=== PATIENT | female | born 1965 | race Caucasian/White ===

== ENCOUNTER 2018-04-11 07:58 | Emergency (ER) | payer OTHER ==
[2018-04-11 08:21] VITALS: BP 150/75
--- NOTE | 2018-04-11 08:37 | UC ---
Shoulder Pain HPI - HPI Summary HPI Summary: right shoulder pain x 3 days pain is severe, constant, pain is radiating from her neck to her right shoulder and down to her right arm cannot find any comfortable positions, + numbness and tingling down her right arm nothing makes it better no known injury - History of Current Complaint Chief Complaint: UCUpperExtremity Stated Complaint: RIGHT SHOULDER PAIN Time Seen by Provider: 04/11/18 08:22 Hx Obtained From: Patient Hx Last Menstrual Period: 11/07/12 ?: No Onset/Duration: Gradual Onset, Lasting Days - 3, Still Present Timing: Constant Severity Initially: Severe Severity Currently: Severe Location Of Pain: Is Discrete @ - right shoulder / right arm Pain Intensity: 10 Character: Aching, Unable to Describe Aggravating Factor(s): Nothing Alleviating Factor(s): Nothing Associated Signs And Symptoms: Positive: Numbness/Tingling. Negative: Swelling , Redness, Bruising, Fever, Weakness - Allergies/Home Medications Allergies/Adverse Reactions: Allergies Allergy/AdvReac Type Severity Reaction Status Date / Time cephalexin [From Keflex] Allergy Hives/Diff. Verified 04/11/18 08:15 Breathing/I tching Home Medications: Home Medications Acetaminophen [Acetaminophen Extra Strength] 1,500 mg PO Q6H PRN 04/11/18 [ History Confirmed 04/11/18] Ibuprofen TAB* [Advil TAB*] 600 mg PO Q6H PRN 04/11/18 [History Confirmed ] PMH/Surg Hx/FS Hx/Imm Hx Previously Healthy: Yes - Surgical History Surgical History: Yes Surgery Procedure, Year, and Place: ectopic preg. T & A. right ear drum surgery. tubal - Family History Known Family History: Negative: Diabetes - Social History Alcohol Use: None Substance Use Type: None Smoking Status (MU): Heavy Every Day Tobacco Smoker Type: Cigarettes Amount Used/How Often: 1/2 PPD Review of Systems All Other Systems Reviewed And Are Negative: Yes Constitutional: Positive: Negative Skin: Positive: Negative Eyes: Positive: Negative ENT: Positive: Negative Respiratory: Positive: Negative Cardiovascular: Positive: Negative Is Patient Immunocompromised?: No Physical Exam Triage Information Reviewed: Yes Appearance: Well-Nourished, Pain Distress Vital Signs: Initial Vital Signs Temp 97.9 F 04/11/18 08:16 Pulse 90 04/11/18 08:16 Resp 16 04/11/18 08:16 BP 150/75 04/11/18 08:16 Pulse Ox 99 04/11/18 08:16 Vital Signs Reviewed: Yes Eyes: Positive: Conjunctiva Clear ENT: Positive: Normal ENT inspection, Hearing grossly normal, Pharynx normal Neck: Positive: Supple, Nontender, No Lymphadenopathy Respiratory: Positive: Chest non-tender, Lungs clear, Normal breath sounds Cardiovascular: Positive: RRR, No Murmur, Pulses Normal Abdominal Exam: Normal Musculoskeletal Exam: Normal Musculoskeletal: Positive: Strength Intact, ROM Intact, No Edema, Other: - right shoulder: no swelling, no erthema, no tenderness, good ROM , normal strength Neurological: Positive: Alert Shoulder Course/Dx - Differential Dx/Diagnosis Provider Diagnosis: Thoracic outlet syndrome Discharge - Sign-Out/Discharge Documenting (check all that apply): Patient Departure All imaging exams completed and their final reports reviewed: No Studies - Discharge Plan Condition: Stable Disposition: HOME Prescriptions: Cyclobenzaprine TAB* [Flexeril 10 MG TAB*] 10 mg PO BID PRN #20 tab PRN Reason: Pain Oxycodone HCl/Acetaminophen [Percocet] 1 tab PO Q6H PRN #15 tab MDD 4 tabs per day PRN Reason: Pain predniSONE [Prednisone 20 MG TAB] 40 mg PO DAILY WITH MEAL #10 tablet Patient Education Materials: Thoracic Outlet Syndrome (ED) Referrals: Chantelle Shen [Primary Care Provider] - 7 Days - Billing Disposition and Condition Condition: STABLE Disposition: Home
== END 2018-04-11 08:43 | disposition home or self-care (01) ==
LOC: UCCORT 07:58
DX: G54.0 Brachial plexus disorders (principal); Z88.1 Allergy status to other antibiotic agents; F17.210 Nicotine dependence, cigarettes, uncomplicated
CPT/HCPCS: 99212; G0463